=== PATIENT | male | born 1955 | race Caucasian/White ===

== ENCOUNTER → 2025-01-10 06:58 | Outpatient (CLI) | payer MEDICARE, SELFPAY ==
--- NOTE | 2025-01-10 07:01 | DI.ECHO.S_ITS ---
[facility] : : [address] : : [place] : : [id number] : : Phone: [phone] Echocardiogram Report + + :Name: SAAD EDWARDS Study Date: 01/10/2025 Height: 77 in : :[facility] ReadingLocation: Weight: 268 lb : : Gender: Male BSA: 2.5 m2 : :: 1955 Age: 69 yrs BP: 177/92 mmHg: :Reason For Study: PVC : :Ordering Physician: PRINCE OBRIEN Performed By: Sergo Aguilera : :Referring: PRINCE OBRIEN : + + Interpretation Summary The ejection fraction is estimated to be 60-65%. There is trace tricuspid regurgitation. The right ventricular systolic pressure is estimated to be at least 35 mmHg based on an estimated right atrial pressure of 3 mm Hg. The ascending aorta is mildly enlarged. Procedure: A two-dimensional transthoracic echocardiogram with color flow and Doppler was performed. The study quality was technically good. There is no prior echocardiogram noted for this patient. The patient was in normal sinus rhythm during the exam. The patient had frequent PVCs during the exam. Left Ventricle: The left ventricle is normal in size. Left ventricular wall thickness is mildly increased. There is no ventricular septal defect visualized. The ejection fraction is estimated to be 60-65%. There are no focal wall motion abnormalities. Diastolic parameters suggest probable normal left ventricular diastolic function and normal filling pressures. Right Ventricle: The right ventricle is normal in size and function. Atria: The left atrium is mildly dilated. The right atrium is mildly dilated. Chiari network (normal variant) is noted. There is no Doppler evidence for an interatrial shunt. Mitral Valve: The mitral valve leaflets are slightly calcified. There is trace mitral regurgitation. Aortic Valve: The aortic valve is trileaflet. The aortic valve opens well. No aortic regurgitation is present. Tricuspid Valve: The tricuspid valve leaflets are thin and pliable. There is trace tricuspid regurgitation. The right ventricular systolic pressure is estimated to be at least 35 mmHg based on an estimated right atrial pressure of 3 mm Hg. Pulmonic Valve: The pulmonic valve is not well seen, but is grossly normal. There is no pulmonic valvular regurgitation. Great Vessels: The aortic root is borderline dilated. The ascending aorta is mildly enlarged. The pulmonary artery is normal size. The IVC is of normal diameter and collapses greater than 50% with a sniff. This suggests a low right atrial pressure of 3 mm Hg. Pericardium/ Pleura There is no pericardial effusion. There is no pleural effusion. MMode/2D Measurements & Calculations LVIDd: 5.3 cm LVOT diam: 2.3 cm LVIDs: 3.8 cm Ao root diam: 3.7 cm FS: 27.7 % asc Aorta Diam: 4.0 cm EPSS: 0.61 cm IVSd: 1.3 cm LVPWd: 1.2 cm LV bobby. diameter/BSA (cm/m^2): 2.1 LV sys. diameter/BSA (cm/m^2): 1.5 LA A2 area: 32.6 cm2 RA long axis: 5.0 cm LA A4 area: 23.9 cm2 RA area: 19.1 cm2 LA length (vol): 6.2 cm RA vol: 61.8 ml LA vol: 107.0 ml RA : 24.4 ml/m2 LA vol index: 42.2 ml/m2 IVC diam: 2.0 cm RVD1 (basal): 3.5 cm RVD2 (mid): 2.5 cm TAPSE: 2.9 cm Doppler Measurements & Calculations Ao V2 max: 136.5 cm/sec LVOT Max Ruy: 104.3 cm/sec Ao V2 mean: 98.2 cm/sec LV V1 max P.4 mmHg Ao max P.5 mmHg LV V1 VTI: 26.7 cm Ao mean P.2 mmHg KARMA(I,D): 3.7 cm2 Ao V2 VTI: 30.6 cm KARMA(V,D): 3.3 cm2 sev ratio: 0.87 KARMA indexed to BSA (cm^2/m^2): 1.5 MV E max ruy: 67.1 cm/sec TR max ruy: 283.4 cm/sec MV A max ruy: 62.7 cm/sec TR max P.1 mmHg MV E/A: 1.1 PA V2 max: 86.6 cm/sec Med Peak E' Ruy: 5.8 cm/sec PA V2 mean: 64.1 cm/sec E/E' med: 11.5 PA mean P.8 mmHg Lat Peak E' Ruy: 6.0 cm/sec PA pr(Accel): 43.0 mmHg E/E' lat: 11.2 E/e' average: 11.3 MV dec time: 0.20 sec SV(LVOT): 114.1 ml Reading Physician:04:[id number] PM
--- NOTE | 2025-01-10 07:02 | DI.NM.S_ITS ---
PROCEDURE: NM EXERCISE TREADMILL NON NUC COMPARISON: None. INDICATIONS: PREMATURE VENTRICULAR CONTRACTION FINDINGS: The patient exercised for 6 minutes and 44 seconds reaching 84% of maximum predicted heart rate. Appropriate BP response to exercise. Average exercise tolerance (7.0METs, SARAH BETH 0%). No angina and no diagnostic ST changes during exercise or recovery. Frequent PVCs, including 16 beat non-sustained VT run during early recovery. IMPRESSION: Abnormal treadmill non-nuclear stress test due to 16 beat non- sustained VT run during early recovery. Average exercise capacity (SARAH BETH 0%). No angina and no diagnostic ST changes during exercise or recovery. Dictated by: Kobi Pereyra MD on 01/10/2025 at 17:05 Approved by: Kobi Pereyra MD on 01/10/2025 at 17:08
== END ==
PROVIDERS: PCP Student in an Organized Health Care Education/Training Program; Referring Provider Internal Medicine; Visit Provider Internal Medicine
DX: I49.3 Ventricular premature depolarization (principal); I77.89 Other specified disorders of arteries and arterioles; R94.39 Abnormal result of other cardiovascular function study
CPT/HCPCS: 93017; 93306